=== PATIENT | female | born 1970 | race Caucasian/White ===

== ENCOUNTER 2018-07-25 15:55 | Outpatient (CLI) | payer OTHER | END 2018-07-25 20:33 | disposition home or self-care (01) | LOC: SMA 15:55 | PROVIDERS: ATTEND Family Medicine | DX: Z12.31 Encounter for screening mammogram for malignant neoplasm of breast (principal) | CPT/HCPCS: 77067 ==

== ENCOUNTER 2019-12-13 09:40 | Outpatient (CLI) | payer OTHER | END 2019-12-13 19:58 | disposition home or self-care (01) | LOC: SMA 09:40 | PROVIDERS: ATTEND Family Medicine | DX: Z12.31 Encounter for screening mammogram for malignant neoplasm of breast (principal) | CPT/HCPCS: 77067 ==